=== PATIENT | female | born 1970 | race Caucasian/White ===

== ENCOUNTER 2023-01-23 15:00 | Outpatient (RCR) | payer OTHER, SELFPAY ==
--- NOTE | 2022-12-31 12:31 | MHC.PT.EP ---
[facility] [place] Office [place] Office [place] Office [address] Shelley Schmidt [address] [phone] F: [phone] F: [phone] F: [phone] F: [phone] Physical Therapy Plan of Care Date of Evaluation: Date of Surgery: N/A Diagnosis: dorsalgia (RC) Assessment: pt is a 52 y/o female presenting to physical therapy w/ referring diagnosis of dorsalgia. Signs and symptoms consistent w/ piriformis syndrome vs. SI dysfunction. Impairments include pain, decreased range of motion, decreased strength, impaired functional mobility, impaired postural awareness, and altered ambulation mechanics. pt is a good candidate for skilled PT due to age, potential remediation of impairments, typical disease/condition progression and prognosis, comorbidities, and motivation. pt would benefit from skilled PT intervention to provide a tailored strengthening and stretching exercise program, functional training, gait training, postural re-training, neuromuscular re-education, modalities as needed for pain, equipment safety demonstration. Frequency and Duration: The patient will be seen 2x/wk for 4 wks Short Term Goals: pt will be I w/ HEP to promote self-management of condition. pt will demo proper sitting posture w/ lumbar roll to promote self-management of condition. pt will improve B hip abduction strength by 1 MMT grade to promote neutral spine w/ standing and ambulation. Retail Assistant Store Manager Goals: pt will improve B glute strength to 5/5 to promote ease in stair navigation and transfers. pt will report a statistically significant improvement in self-reported outcome measure, Song, to promote return to PLOF. Treatment Plan: Modalities to reduce pain, spasms and effusion. Manual therapy to restore motion and function. Therapeutic exercise to improve strength and flexibility. Neuromuscular re-education for posture and balance. Therapeutic activities to return to functional activities of daily living. Electronically signed by: Shyanne Parra PT, DPT Please sign and return to therapist. Thank you for your referral.
--- NOTE | 2023-01-25 10:49 | MHC.PT.DC ---
[facility] [place] Office [place] Office [place] Office [address] Shelley Schmidt [address] [phone] F: [phone] F: [phone] F: [phone] F: [phone] Physical Therapy Discharge Report Diagnosis: dorsalgia (RC) Date of Surgery: N/A Date of Evaluation: 12/31/22 Date of Discharge: 01/25/23 Treatments to Date: 6 Cancellations to Date: 1 No Shows to Date: 0 Discharge Status: Improved Function Independent with HEP Discharge Summary: The patient reported overall less frequent and less severe back pain. She is independent with her home exercise program. She would like to be discharged from physical therapy at this time. Electronically signed by: Shyanne Parra PT, DPT Please sign and return to therapist. Thank you for your referral.
== END 2023-01-25 10:49 | disposition home or self-care (01) ==
LOC: HO.PT 15:00
PROVIDERS: PCP Nurse Practitioner Family; Visit Provider Nurse Practitioner Family
DX: M54.9 Dorsalgia, unspecified (principal)
CPT/HCPCS: 97110; 97162; 97530

== ENCOUNTER 2023-02-06 08:46 | Outpatient (REF) | payer OTHER, SELFPAY ==
--- NOTE | ~2023-02-06 | XR_ITS ---
EXAMINATION: XR CHEST CLINICAL INFORMATION: R05.9 - Cough, unspecified COMPARISON: None available. TECHNIQUE: 2 views of the chest were obtained. FINDINGS: The lungs are clear. There is no airspace consolidation or groundglass opacity. Heart size normal. Vascularity normal. Costophrenic sulci are clear. The hilar and mediastinal contours are unremarkable. No acute bony abnormality. XR/XR chest 2V IMPRESSION: Unremarkable examination.
[2023-02-06 09:12] LABS: MANUAL DIFF FLAG NO
[2023-02-06 09:35] LABS: Basophils Absolute Auto 0.1 X10*3/uL (0.0-0.2); Basophils Percent Auto 1.3 % (0-2); Eosinophils Absolute Auto 0.1 X10*3/uL (0.0-0.4); Eosinophils Percent Auto 2.1 % (0-4); Hematocrit 40.8 % (37.0-47.0); Hemoglobin 14.2 g/dl (12.0-16.0); Imm Gran Abs Auto 0.03 X10*3/uL (0.00-0.03); Imm Gran Pct Auto 0.8 % (0.0-0.4); Lymphocytes Absolute Auto 1.1 X10*3/uL (1.2-4.9); Lymphocytes Percent Auto 29.4 % (20-40); Mean Corpuscular HGB Conc 34.8 g/dl (31.0-35.0); Mean Corpuscular Volume 83.3 fL (80.0-98.0); Mean Platelet Volume 9.9 fL (9.4-12.3); Monocytes Absolute Auto 0.4 X10*3/uL (0.1-1.2); Monocytes Percent Auto 10.1 % (2-11); Neutrophils Absolute Auto 2.2 x10*3/uL (2.0-8.3); Neutrophils Percent Auto 56.3 % (45-73); Platelet Count 188 X10*3/uL (160-400); Red Cell Distribution Width 13.6 % (11.0-16.0); White Blood Count 3.9 X10*3/uL (4.8-10.8)
[2023-02-06 10:15] LABS: Estimated Average Glucose 346 mg/dL; Hemoglobin A1c % 13.7 %
[2023-02-06 10:44] LABS: Alanine Aminotransferase 31 U/L (0-31); Albumin Level 4.1 g/dL (3.5-5.0); Alkaline Phosphatase 104 U/L (39-117); Anion Gap 12 (12-20); Aspartate Amino Transferase 24 U/L (5-31); Bilirubin Total 1.1 mg/dL (0.0-1.0); Blood Urea Nitrogen 11 mg/dL (9-16); Calcium 9.4 mg/dL (8.4-10.2); Carbon Dioxide 28 mmol/L (22-29); Chloride 102 mmol/L (96-108); Cholesterol 186 mg/dL; Estimated Glomerular Filt Rate > 60; Glucose Fasting 390 mg/dL (60-99); HDL Cholesterol 34 mg/dL; Potassium 4.3 mmol/L (3.3-5.1); Sodium 138 mmol/L (135-145); Total Protein 6.5 g/dL (6.5-8.0); Triglycerides 490 mg/dL
[2023-02-06 10:47] LABS: Folate 17.5 ng/mL (> or = 4.0); TSH reflex Free T4 1.87 uIU/mL (0.32-4.0); Vitamin B12 1056 pg/mL (200-900); Vitamin D 25-OH Total 74.3 ng/mL (>30)
[2023-02-06 11:03] LABS: Microalbum/Creatinine Ratio Ur 18.3 ug/mg cr
== END 2023-02-06 08:47 | disposition home or self-care (01) ==
LOC: HO.XRAY 08:46
PROVIDERS: PCP Nurse Practitioner Family; Visit Provider Nurse Practitioner Family
DX: I10 Essential (primary) hypertension (principal); E11.9 Type 2 diabetes mellitus without complications; R05.9 Cough, unspecified; E78.1 Pure hyperglyceridemia; K21.9 Gastro-esophageal reflux disease without esophagitis; F32.A Depression, unspecified; F41.9 Anxiety disorder, unspecified; M54.9 Dorsalgia, unspecified
CPT/HCPCS: 36415; 71046; 80053; 80061; 82043; 82306; 82607; 82746; 83036; 84443; 85025

== ENCOUNTER 2023-05-03 12:53 | Outpatient (AMB) | payer OTHER, SELFPAY ==
[2023-05-03 13:01] VITALS: BP 137/86; PULSE 85
--- NOTE | 2023-05-03 13:01 | A.OFFVIS_ITS ---
Intake Vital Signs 05/03/23 13:01 Height 5 ft 5 in Weight 17 lb 10.192 oz BMI 2.9 BP 137/86 Pulse 85 Intake Visit Reasons: DM2 Intake Note: New patient present today for Diabetes Mellitus. Last Diabetic Eye exam: Last Podiatry Visit: Random Glucose: 303mg/dl HgA1C: 13.7% 02/06/23 Shaker Washer Required: No Accompanied by: Self / Same As Patient Allergies No Known Allergies Allergy (Verified 05/03/23 13:07) Medication List - Last Reconciled 05/03/23 by Dylan Evans MD atorvastatin 40 mg PO BEDTIME cyclobenzaprine 5 mg PO BEDTIME PRN glipizide ER 5 mg PO DAILY losartan 100 mg PO DAILY metoprolol succinate ER 50 mg PO DAILY omeprazole 40 mg PO DAILY semaglutide (Ozempic) 1 mg (0.75 mL) subcut QWEEK sertraline 100 mg PO DAILY HPI HPI Comments History of Present Illness Details 53 YO F who is seen in consultation for T2DM at the request of PCP. Initially diagnosed with T2DM in age 29 . Saw taping supervisor saw yrs ago Was initially started on treatment with metformin .Had GI symptoms. Took Jard iance but too expensive . Current regimen Glipizide 5 mg QD Ozempic 1 mg Qwkly . Unfortunately, patient not bring log book or glucometer to visit. Reports low sugars No . Family history of T2DM in- No . Has eyes checked yearly, last eye exam last march 2022 needs to make appt , denies retinopathy. Denies neuropathy, not sees podiatry. Denies nephropathy, on SHANA/ARB.. Has HLD, on statin. Not hx of CAD Had diabetes education. [facility] Medical History (Updated 02/14/23 @ 16:53 by SHAYLA Lagos) COVID-19 Encounter to establish care [place] Surgical History History of cholecystectomy History of colonoscopy Hx of hernia repair Hx of knee surgery Status post breast reduction Family History Mother Alcoholic Father Heart transplanted Cardiomyopathy Social History Housing: Apartment Patient Tobacco Use Status: Never used Tobacco Second Hand Smoke Exposure: Yes (parents) service: No Current occupational status: employed Cognitive needs: No Hearing needs: No Vision needs: No Physical Exam Vital Signs: Last Vital Signs Pulse 85 05/03/23 13:01 BP 137/86 05/03/23 13:01 BMI result Body Mass Index 2.9 Absence of Cushingoid features. Absence of acromegalic features. Neck exam reveals nl size thyroid about 15 gms. No thyroid nodules palpable. No carotid bruits present. Lungs CTA. Heart S1 S2, Reg R/R. No M/R/ G. Skin exam reveals absence of vitiligo or acanthosis nigricans. Abdominal exam reveals Soft NT/ND with NA BS. No organomegaly present. Neck Other: . Extrem Other: Visual exam of foot performed. No ulcerations or open lesions. No onchomycosis, no callouses.Pulses 2 + distally Sensation intact to monofilament exam. Vibratory sensation sensed is intact with 128 Hz tuning fork Assessment & Plan Assessment & Plan (1) Diabetes mellitus: Code(s): E11.9 - Type 2 diabetes mellitus without complications Plan: This is a 53-year-old white female with a history of type 2 diabetes being treated with glipizide and Ozempic with poor glycemic control and no known m icrovascular or macrovascular complications. Plan is that the patient check her point cares pre and post meals and bring glucometer with to follow-up visits. I prescribed a Chris 3. I will also send to children's lunchroom supervisor and contact officer. Most likely considering degree of hyperglycemia, patient will need addition of insulin initially. Will start Tresiba 20 units once patient returns to see children's lunchroom supervisor with Chris. Will discuss with patient the correlation of poor glycemic control the development and progression of complications. Will repeat lipid profile once patient has better glycemic control. Will also check anti-ROC 65 antibodies to rule out CHELSEA considering no family history of diabetes Orders: Orders Glutamic acid decarboxylase Ab Today E11.9 - Type 2 diabetes mellitus without complications Medications: New blood-glucose sensor (FreeStyle Chris 3 Sensor device) As directed change every 14 days 2 ea 4RF insulin degludec (Tresiba FlexTouch U-100 insulin) 20 units (0.2 mL) subcut BEDTIME 15 mL 4RF pen needle, diabetic (Comfort EZ Pen [place]) As directed injects once day 50 ea 5RF Coding Level of Care Code New Pt Level 5 (36768) Diagnoses Diabetes mellitus E11.9 Time Spent (min) 60 Comment A total of 60 minutes was spent reviewing chart, seeing patient and dictating
[2023-05-03 13:13] LABS: Glucose, Whole Blood 303 mg/dL (60-115)
[2023-05-07 20:29] LABS: Glutamic acid decarboxylase Ab <5 IU/mL (<5)
== END 2023-05-03 14:02 | disposition home or self-care (01) ==
PROVIDERS: PCP Nurse Practitioner Family; Visit Provider Internal Medicine Endocrinology, Diabetes & Metabolism
DX: E11.9 Type 2 diabetes mellitus without complications (principal)
CPT/HCPCS: 99205

== ENCOUNTER → 2023-05-03 12:53 | Outpatient (BNVA) | payer OTHER, SELFPAY | PROVIDERS: Visit Provider Internal Medicine Endocrinology, Diabetes & Metabolism | DX: E11.9 Type 2 diabetes mellitus without complications (principal); Z79.4 Long term (current) use of insulin; E78.5 Hyperlipidemia, unspecified; Z79.899 Other long term (current) drug therapy | CPT/HCPCS: 36415; 82947; 86341 ==

== ENCOUNTER 2023-05-14 14:29 | Outpatient (AMB) | payer OTHER, SELFPAY ==
--- NOTE | 2023-05-14 14:56 | A.OFFVIS_ITS ---
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: No Accompanied by: Spouse Allergies No Known Allergies Allergy (Verified 05/03/23 13:07) HPI Comprehensive Diabetes Asmnt Most Recent Diabetes Results: Microalb/Creat Ratio 18.3 ug/mg cr 02/06/23 Cholesterol 186 mg/dL 02/06/23 HDL Cholesterol 34 mg/dL 02/06/23 Triglycerides 490 mg/dL 02/06/23 Creatinine 0.73 mg/dL (0.5-1.4) 02/06/23 Blood Urea Nitrogen 11 mg/dL (9-16) 02/06/23 Sodium 138 mmol/L (135-145) 02/06/23 Potassium 4.3 mmol/L (3.3-5.1) 02/06/23 Chloride 102 mmol/L (96-108) 02/06/23 Carbon Dioxide 28 mmol/L (22-29) 02/06/23 Calcium 9.4 mg/dL (8.4-10.2) 02/06/23 AST 24 U/L (5-31) 02/06/23 ALT 31 U/L (0-31) 02/06/23 Total Protein 6.5 g/dL (6.5-8.0) 02/06/23 Albumin 4.1 g/dL (3.5-5.0) 02/06/23 [facility] Medical History (Updated 02/14/23 @ 16:53 by SHAYLA Lagos) COVID-19 Encounter to establish care [place] Surgical History History of cholecystectomy History of colonoscopy Hx of hernia repair Hx of knee surgery Status post breast reduction Family History Mother Alcoholic Father Heart transplanted Cardiomyopathy Social History Housing: Apartment Patient Tobacco Use Status: Never used Tobacco Second Hand Smoke Exposure: Yes (parents) service: No Current occupational status: employed Cognitive needs: No Hearing needs: No Vision needs: No Assessment & Plan Assessment & Plan (1) Diabetes mellitus: Code(s): E11.9 - Type 2 diabetes mellitus without complications Plan: Insulin Education visit Patient Education: Patient was instructed and provided with demonstration of the following: Insulin action insulin storage how to set up insulin pen/or syringe and vial Handwashing insulin injection site rotation Site rotation recognizing hypertrophy Testing blood glucose Removing and disposing needle from insulin pen Safe disposal of sharps Target blood sugar Signs/ symptoms/treatment of hypoglycemia/hyperglycemia expiration of open insulin pen Patient verbalized understanding of education provided and was able to demonstrate proper use of inject into injection pillow Reviewed rule of 15s to treat glucose under 70 mg/dL All questions were answered and patient was advised to contact the office with any questions or concerns. Plan Pt will start Tresiba 20 units daily Patient Instructions: How to Use Your Insulin Pen Supplies you will need: alcohol, alcohol wipes, insulin pen, pen needle * Wash your hands * Remove cap from the top of the pen * Clean the top of the pen with alcohol swab * Remove paper tab from pen needle base * Screw pen needle firmly on to pen * Remove outer cover of pen needle put it aside, discard little cover from pen needle * Dial base of needle to 2 units, press and make sure you see a drip at top of needle * Check to see the dial return to zero * Dial your correct insulin dose at base of pen * Clean injection site with alcohol or hot soapy water, remember always to rotate injection sites with every injection * Inject needle at 90? angle into chosen injection site * Press the button on the bottom of the pen * After you press the button count to 10 and then remove needle from your skin * Put the large needle cap back over needle and unscrew counterclockwise to remove pen needle * Replace insulin pen cover * Write the date on the pen when you opened or expiration date. Once insulin pens are open they can be left at room temperature. Please see below: * Tresiba eight weeks Store unopened pens in the refrigerator until expiration date on the box. Hypoglycemia or blood glucose under 70 use the rule of 15's: If you have your blood glucose meter test your blood glucose, if you do not have your meter still follow below instruction: Keep quick-sugar foods with you at all times.? Take 15 grams of fast acting carbohydrates. Examples are 4 ounces of fruit juice or regular soda pop, 8 ounces fat-free milk, 1 tablespoon of table sugar, honey or corn syrup, jam, one miniature box of raisins, 7-8 gumdrops or Life Savers candy, 4 glucose tablets, and glucose gel.? Retest blood glucose in 15 minutes, if blood glucose is still under 80, repeat rule of 15's. If blood glucose is under 50, take 30 grams of fast acting carbohydrates If you are having hypoglycemia, or insulin reaction, more then a few times a week, call MD or community health educator DIABETES PROBLEMS HOMECARE INSTRUCTIONS Hypo instructions ? When first signs of insulin reaction occur, immediately drink orange juice or cola, or suck on a sugar cube, but only if the person is conscious. ? Person with diabetes should continue taking insulin when ill, unless he/she is not able to eat.? Regularly check blood sugar or urine for sugar and acetone during illness. ? Exercise regularly. ? Pay special attention to the feet.? Avoid cuts, sores, blisters, ill- fitting shoes, or going barefoot.? Promptly treat injuries to the feet. ? Take medications as directed by physician. ? Drink extra water or noncaffeinated, nonsugared drinks to prevented hydration. Signs and symptoms of low blood sugar (happen quickly) Each person's reaction to low blood sugar is different. Learn your own signs and symptoms of when your blood sugar is low. Taking time to write these symptoms down may help you learn your own symptoms of when your blood sugar is low. From milder, more common indicators to most severe, signs and symptoms of low blood sugar include: Feeling shaky Being nervous or anxious Sweating, chills and clamminess Irritability or impatience Confusion Fast heartbeat Feeling lightheaded or dizzy Hunger Nausea Color draining from the skin (pallor) Feeling Sleepy Feeling weak or having no energy Blurred/impaired vision Tingling or numbness in the lips, tongue, or cheeks Headaches Coordination problems, clumsiness Hypoglycemia or blood glucose under 70 use the rule of 15's: If you have your blood glucose meter test your blood glucose, if you do not have your meter still follow below instruction: Keep quick-sugar foods with you at all times.? Take 15 grams of fast acting carbohydrates. Examples are 4 ounces of fruit juice or regular soda pop, 8 ounces fat-free milk, 1 tablespoon of table sugar, honey or corn syrup, jam, one miniature box of raisins, 7-8 gumdrops or Life Savers candy, 4 glucose tablets, and glucose gel.? Retest blood glucose in 15 minutes, if blood glucose is still under 70, repeat rule of 15's. If blood glucose is under 50, take 30 grams of fast acting carbohydrates If you are having hypoglycemia, or insulin reaction, more that a few times a week, call MD or community health educator F/U BG check Coding Level of Care Code Est Pt Level 1 (52141) Diagnoses Diabetes mellitus E11.9
== END 2023-05-14 15:05 | disposition home or self-care (01) ==
PROVIDERS: PCP Nurse Practitioner Family; Visit Provider Registered Nurse Diabetes Educator
DX: E11.9 Type 2 diabetes mellitus without complications (principal)
CPT/HCPCS: 99211

== ENCOUNTER → 2023-05-14 14:29 | Outpatient (BNVA) | payer OTHER, SELFPAY | PROVIDERS: PCP Nurse Practitioner Family; Visit Provider Registered Nurse Diabetes Educator ==

== ENCOUNTER 2023-06-19 15:38 | Outpatient (AMB) | payer OTHER, SELFPAY ==
[2023-06-19 15:41] VITALS: BP 160/90; PULSE 94; O2SAT 97; BMI 32.6
--- NOTE | 2023-06-19 15:41 | A.OFFPC_ITS ---
Vital Signs 06/19/23 15:41 06/19/23 15:58 Height 5 ft 5 in Weight 196 lb BMI 32.6 BP 160/90 H 156/84 H Blood Pressure Location Lt brachial Lt brachial Position Sitting Sitting Pulse 94 Pulse Source Pulse Oximeter Temp Source Skin Pulse Oximetry (%) 97 Oxygen Delivery Method Room Air Intake Visit Reasons: 4 month f/u Intake Note: Patient is here to follow up on 4 months Allergies No Known Allergies Allergy (Verified 06/19/23 15:50) Medication List - Last Reconciled 06/19/23 by SHAYLA Lagos atorvastatin 40 mg PO BEDTIME blood-glucose sensor (FreeStyle Chris 3 Sensor device) As directed change every 14 days cyclobenzaprine 5 mg PO BEDTIME PRN glipizide ER 5 mg PO DAILY insulin degludec (Tresiba FlexTouch U-100 insulin) 20 units (0.2 mL) subcut BEDTIME losartan 100 mg PO DAILY metoprolol succinate ER 50 mg PO DAILY omeprazole 40 mg PO DAILY pen needle, diabetic (Easy Comfort Pen [place]) As directed inbjects once a day semaglutide (Ozempic) 1 mg (0.75 mL) subcut QWEEK sertraline 100 mg PO DAILY Tobacco use date assessed: 06/19/23 Dental Screening Dental Screen Date: 06/19/23 Did you have a dental visit in the last 12 months?: No Did you have a dental problem in the last 6 months where you did not have access to dental care?: No HPI 4 month f/u HPI Details Patient is a 53-year-old female who presents today for a routine follow-up. Medical history significant for hypertension, diabetes-followed by Endocrinology, hypertriglyceridemia, GERD, depression, anxiety, obesity. Patient reports that she is compliant with medications and denies side effects. Patient reports that she was rushing to today's appointment and her blood pressure is elevated, she denies headache, vision changes, chest pain or shortness of breath. Reports blood sugars at home ranging between 200 and 300s. Patient was encouraged to complete her blood work that was ordered at the last office visit. [facility] Medical History COVID-19 [place] Encounter to establish care Surgical History History of colonoscopy Hx of hernia repair History of cholecystectomy Status post breast reduction Hx of knee surgery Family History Mother Alcoholic Father Heart transplanted Cardiomyopathy Social History Housing: Apartment Patient Tobacco Use Status: Never used Tobacco Second Hand Smoke Exposure: Yes (parents) service: No Current occupational status: employed Cognitive needs: No Hearing needs: No Vision needs: No Questionnaire AUDIT C Alcohol Use Questionnaire (AUDIT-C) 1. How often do you have a drink containing alcohol?: Monthly or less 2. How many drinks containing alcohol do you have on a typical day when you are drinking?: 1 or 2 3. How often do you have six or more drinks on one occasion?: Never Total Score: 1 Score Reviewed/Action Taken: No ROC-7 AMB Questionnaire ROC-7 Date ROC - 7 assessed: 02/14/23 Source: Developed by Drs. Dylan Winters, America Taveras, Augusto Guillory and colleagues, with an educational trinidad from [employer]. Review of Systems Const Denies body aches, Denies chills, Denies fever(s) and Denies headache(s) Eyes Denies change in vision ENT Denies dizziness, Denies otalgia, Denies headache(s), Denies nasal discharge, Denies sinus pain and Denies sore throat Card Denies chest pain, Denies edema, Denies lightheadedness and Denies dyspnea Resp Denies dyspnea GI Denies constipation, Denies diarrhea, Denies nausea and Denies vomiting Denies dysuria Musc Denies myalgias Skin/Breast Denies lesions and Denies rash Neuro Denies dizziness and Denies headache(s) Physical exam (Primary Care) Vital Signs: Last Vital Signs Pulse 94 06/19/23 15:41 BP 156/84 H 06/19/23 15:58 Pulse Ox 97 06/19/23 15:41 Oxygen Delivery Method Room Air 06/19/23 15:41 BMI result Body Mass Index 32.6 Tobacco/Smoking Status: Tobacco use Status Tobacco use date assessed 06/19/23 06/19/23 15:42 Patient Tobacco Use Status Never used Tobacco 06/19/23 15:42 Const General: cooperative and no acute distress Orientation/consciousness: patient oriented x3 HENMT Head: Yes normocephalic and Yes atraumatic Mouth: oropharynx normal and moist mucous membranes Throat: Yes posterior oropharynx normal Eyes General: appearance normal, both eyes and all related structures Pupils: Equal, round and reactive pupils present EOM: EOMs intact bilaterally Neck Neck: Yes normal visual inspection, Yes full ROM and Yes no lymphadenopathy Resp Effort & Inspection: normal respiratory effort and able to speak in complete sentences Auscultation: clear to auscultation bilaterally, no crackles, no rales, no rhonchi and no wheezes Cardio Rate: regular rate Rhythm: regular rhythm Heart sounds: S1 normal heart sound present, S2 normal heart sound present and no murmurs GI Auscultation: normal bowel sounds Skin General skin exam: no rashes or lesions noted Neuro General: patient oriented x3 Cranial nerves: Yes Equal, round and reactive pupils present Gait exam (Neuro): Normal gait present Extrem General: Yes full ROM and No edema Results AMB Hemoglobin A1c AMB Hemoglobin A1c 8.0 % Last Edit by DESTINEY Mixon on 06/19/23 15:53 Results Reviewed Results Reviewed: Laboratory Last Values Hgb A1c (Clinic) 8.0 % (4.0-6.0) H 06/19/23 14:52 Assessment and Plan Assessment & Plan (1) Anxiety: Code(s): F41.9 - Anxiety disorder, unspecified Plan: Stable with sertraline 100 mg daily (2) Depression: Code(s): F32.A - Depression, unspecified Qualifiers: Depression Type: other depression Qualified Code(s): F32.89 - Other specified depressive episodes Plan: Stable with sertraline 100 mg daily (3) GERD (gastroesophageal reflux disease): Code(s): K21.9 - Gastro-esophageal reflux disease without esophagitis Plan: Omeprazole 40 mg daily Avoid GERD trigger foods Do not lay down 2-3 hours after evening meal (4) Hypertriglyceridemia: Code(s): E78.1 - Pure hyperglyceridemia Plan: Triglycerides 490 01/2023 Continue atorvastatin 40 mg at bedtime Low-cholesterol diet Patient was encouraged to complete her blood work (5) Diabetes mellitus: Code(s): E11.9 - Type 2 diabetes mellitus without complications Plan: A1c 8.0 today, previous A1c 13.7 01/2023, goal less than 7 Continue Ozempic weekly, glipizide, and tresiba Low carbohydrate diet Continue to follow-up with [facility] (6) Hypertension: Code(s): I10 - Essential (primary) hypertension Plan: Goal BP equal or less than 140/90 Continue metoprolol 50 mg daily and losartan 100 mg daily Low-sodium diet Patient was encouraged to monitor her blood pressures at home and notify office if elevated blood pressures readings will adjust blood pressure medications (7) Obesity (BMI 30.0-34.9): Code(s): E66.9 - Obesity, unspecified Plan: Healthy food choices and exercise as tolerated Plan Follow-up in 4 months or sooner as needed Orders: Orders AMB Hemoglobin A1c Today E11.9 - Type 2 diabetes mellitus without complications Coding Level of Care Code Est Pt Level 4 (81096) Diagnoses Anxiety F41.9 Other depression F32.89 Depression Type: other depression GERD (gastroesophageal reflux disease) K21.9 Hypertriglyceridemia E78.1 Diabetes mellitus E11.9 Hypertension I10 Obesity (BMI 30.0-34.9) E66.9
[2023-06-19 15:58] VITALS: BP 156/84
== END 2023-06-19 16:00 | disposition home or self-care (01) ==
PROVIDERS: Visit Provider Nurse Practitioner Family
DX: E11.9 Type 2 diabetes mellitus without complications (principal); F41.9 Anxiety disorder, unspecified; K21.9 Gastro-esophageal reflux disease without esophagitis; I10 Essential (primary) hypertension; F32.89 Other specified depressive episodes; E78.1 Pure hyperglyceridemia; E66.9 Obesity, unspecified
CPT/HCPCS: 83036; 99214

== ENCOUNTER 2023-08-23 11:19 | Outpatient (REF) | payer OTHER, SELFPAY ==
[2023-08-23 11:31] LABS: MANUAL DIFF FLAG NO
[2023-08-23 11:37] LABS: Basophils Absolute Auto 0.1 X10*3/uL (0.0-0.2); Eosinophils Absolute Auto 0.1 X10*3/uL (0.0-0.4); Eosinophils Percent Auto 1.2 % (0-4); Hematocrit 38.8 % (37.0-47.0); Hemoglobin 13.6 g/dl (12.0-16.0); Imm Gran Abs Auto 0.05 X10*3/uL (0.00-0.03); Imm Gran Pct Auto 0.8 % (0.0-0.4); Lymphocytes Absolute Auto 1.9 X10*3/uL (1.2-4.9); Mean Corpuscular HGB Conc 35.1 g/dl (31.0-35.0); Mean Corpuscular Hemoglobin 29.6 pg (27.0-33.0); Mean Corpuscular Volume 84.3 fL (80.0-98.0); Mean Platelet Volume 9.3 fL (9.4-12.3); Monocytes Absolute Auto 0.5 X10*3/uL (0.1-1.2); Monocytes Percent Auto 7.6 % (2-11); Neutrophils Absolute Auto 3.4 x10*3/uL (2.0-8.3); Neutrophils Percent Auto 57.4 % (45-73); Platelet Count 255 X10*3/uL (160-400); Red Cell Distribution Width 13.3 % (11.0-16.0); White Blood Count 5.9 X10*3/uL (4.8-10.8)
[2023-08-23 12:07] LABS: Alanine Aminotransferase 55 U/L (0-31); Albumin Level 4.2 g/dL (3.5-5.0); Alkaline Phosphatase 123 U/L (39-117); Anion Gap 10 (12-20); Aspartate Amino Transferase 27 U/L (5-31); Bilirubin Total 0.8 mg/dL (0.0-1.0); Blood Urea Nitrogen 9 mg/dL (9-16); Calcium 9.8 mg/dL (8.4-10.2); Carbon Dioxide 30 mmol/L (22-29); Chloride 105 mmol/L (96-108); Cholesterol 129 mg/dL (<200); Estimated Glomerular Filt Rate > 60; Glucose Fasting 263 mg/dL (60-99); HDL Cholesterol 37 mg/dL (>40); LDL Cholesterol Calculated 39 mg/dL (<100); Potassium 4.4 mmol/L (3.3-5.1); Sodium 141 mmol/L (135-145); Total Protein 7.2 g/dL (6.5-8.0); Triglycerides 267 mg/dL (<150)
[2023-08-23 13:39] LABS: Estimated Average Glucose 197 mg/dL; Hemoglobin A1c % 8.5 % (<6.0)
== END 2023-08-23 11:20 | disposition home or self-care (01) ==
LOC: HO.LAB 11:19
PROVIDERS: PCP Nurse Practitioner Family; Visit Provider Nurse Practitioner Family
DX: E78.1 Pure hyperglyceridemia (principal); E11.9 Type 2 diabetes mellitus without complications
CPT/HCPCS: 36415; 80053; 80061; 83036; 85025

== ENCOUNTER 2023-10-07 11:04 | Outpatient (AMB) | payer OTHER, SELFPAY ==
--- NOTE | 2023-10-07 11:25 | A.OFFPC_ITS ---
Vital Signs 10/07/23 11:28 Height 5 ft 5 in Weight 201 lb 2 oz BMI 33.5 BP 118/62 Blood Pressure Location Lt brachial Position Sitting Pulse 81 Pulse Source Pulse Oximeter Pulse Oximetry (%) 97 Oxygen Delivery Method Room Air Intake Visit Reasons: High BS/med review Intake Note: Patient is here to follow up on High blood sugars and medication review/change. Oil Well Service Operator Required: No Patient Financial Representative: Not Required per policy Accompanied by: Self / Same As Patient Allergies No Known Allergies Allergy (Verified 10/07/23 11:27) Medication List - Last Reconciled 10/07/23 by Artemio Underwood MD atorvastatin 40 mg PO BEDTIME blood-glucose sensor (FreeStyle Chris 3 Sensor device) As directed change every 14 days cyclobenzaprine 5 mg PO BEDTIME PRN glipizide ER 5 mg PO DAILY insulin degludec (Tresiba FlexTouch U-100 insulin) 20 units (0.2 mL) subcut BEDTIME losartan 100 mg PO DAILY metoprolol succinate ER 50 mg PO DAILY omeprazole 40 mg PO DAILY pen needle, diabetic (Easy Comfort Pen Epps) As directed inbjects once a day semaglutide (Ozempic) 1 mg (0.75 mL) subcut QWEEK sertraline 100 mg PO DAILY Tobacco use date assessed: 10/07/23 Dental Screening Dental Screen Date: 10/07/23 Did you have a dental visit in the last 12 months?: No Did you have a dental problem in the last 6 months where you did not have access to dental care?: No Was dental information given to patient?: No HPI High BS/med review HPI Details 53-year-old female presents to the offic e to review her medical conditions. Patient has type 2 diabetes and takes glipizide, Tresiba and Ozempic. Her blood sugars have been greater than 250 and her last A1c is 8.5. Initially patient was taking Jardiance and her sugars were well controlled. However she had to stop the Jardiance due to the cost. She was switched to glipizide and patient's blood sugars have been high. Now she has found a way to pay for the Jardiance and would like to switch back to it. [facility] Medical History COVID-19 Lipoma Encounter to establish care Surgical History History of colonoscopy Hx of hernia repair History of cholecystectomy Status post breast reduction Hx of knee surgery Family History Mother Alcoholic Father Heart transplanted Cardiomyopathy Social History (Updated 10/07/23 @ 12:05 by DESTINEY Cooper) Housing: Apartment Alcohol intake: never Patient Tobacco Use Status: Never used Tobacco e-Cigarette/Vaping Use: Never Used Second Hand Smoke Exposure: Yes (parents) service: No Current occupational status: employed Cognitive needs: No Hearing needs: No Vision needs: No Questionnaire PHQ-9 Over the last 2 weeks, how often have you been bothered by any of the following problems? 1. Little interest or pleasure in doing things: several days (on medication) 2. Feeling down, depressed, or hopeless: not at all 3. Trouble falling or staying asleep, or sleeping too much: not at all 4. Feeling tired or having little energy: not at all 5. Poor appetite or overeating: not at all 6. Feeling bad about yourself - or that you are a failure or have let yourself or your family down: not at all 7. Trouble concentrating on things, such as reading the newspaper or watching television: not at all 8. Moving or speaking so slowly that other people could have noticed. Or the opposite - being so fidgety or restless that you have been moving around a lot more than usual: not at all 9. Thoughts that you would be better off or of hurting yourself in some way: not at all Total score: 1 Depression Screening Interpretation: Negative Depression Screening Done: Yes Source: Developed by Drs. Dylan Wniters, America Taveras, Augusto Guillory and colleagues, with an educational trinidad from [employer]. Thrive Questionnaire Date Thrive assessed: 10/07/23 I am a: Patient What is your living situation today?: I have a steady place to live Within the past 12 months, did the food you bought not last and you didn't have the money to get more?: Never true Within the past 12 months, did you worry whether your food would run out before you got money to buy more?: Never true Do you have trouble paying for medicines?: No Do you have trouble getting transportation to medical appointments?: No Do you have trouble paying your heating and electricity bill?: No Do you have trouble taking care of your child, family member or friend?: No Do you have trouble with day-to-day activities such as bathing, preparing meals, shopping, managing finances, etc.?: No Are you currently unemployed and looking for a job?: No Are you interested in more education?: No Currently or been in a relationship where the following occur: no concerns reported AUDIT C Alcohol Use Questionnaire (AUDIT-C) 1. How often do you have a drink containing alcohol?: Monthly or less 2. How many drinks containing alcohol do you have on a typical day when you are drinking?: 1 or 2 Total Score: 1 ROC-7 AMB Questionnaire ROC-7 Date ROC - 7 assessed: 10/07/23 Feeling nervous, anxious, or on edge: 1 = Several days (on medication) Not being able to stop or control worryin = Not at all Worrying too much about different things: 0 = Not at all Trouble relaxin = Not at all Being so restless that it is hard to sit still: 0 = Not at all Becoming easily annoyed or irritable: 0 = Not at all Feeling afraid as if something awful might happen: 0 = Not at all Total ROC-7 score (0-4 normal; 5-9 mild; 10-14 moderate; 15-21 severe): 1 Source: Developed by Drs. Dylna Winters, America Taveras, Augusto Guillory and colleagues, with an educational trinidad from [employer]. Physical exam (Primary Care) Vital Signs: Last Vital Signs Pulse 81 10/07/23 11:28 BP 118/62 10/07/23 11:28 Pulse Ox 97 10/07/23 11:28 Oxygen Delivery Method Room Air 10/07/23 11:28 BMI result Body Mass Index 33.5 Tobacco/Smoking Status: Tobacco use Status Tobacco use date assessed 10/07/23 10/07/23 12:00 Patient Tobacco Use Status Never used Tobacco 10/07/23 12:05 e-Cigarette/Vaping Use Never Used 10/07/23 12:05 PHQ-9: PHQ-9 Score PHQ-9: Total score 1 10/07/23 12:06 Depression Screening Interpretation: Negative Thrive Assessment: Date of Thrive Assessment Date Thrive assessed 10/07/23 10/07/23 12:00 Currently or been in a relationship where the following occur: no concerns reported Const General: cooperative and healthy appearing Nutritional Appearance: well nourished Orientation/consciousness: patient oriented x3 Limitations: no limitations HENMT Head: Yes normal to inspection Eyes General: appearance normal, both eyes and all related structures Neck Neck: Yes normal visual inspection Chest Chest palpation & inspection: normal palpation of entire chest wall Resp Effort & Inspection: normal respiratory effort Neuro General: patient oriented x3 Assessment and Plan Assessment & Plan (1) Diabetes mellitus: Code(s): E11.9 - Type 2 diabetes mellitus without complications Plan: Glipizide has been stopped. Jardiance 25 mg a day has been restarted. Patient was advised to still be compliant with diet and exercise. Other medications should be continued at the same dosage. Coding Level of Care Code Est Pt Level 4 (49623) Diagnoses Diabetes mellitus E11.9
[2023-10-07 11:28] VITALS: BP 118/62; PULSE 81; O2SAT 97; BMI 33.5
== END 2023-10-07 12:21 | disposition home or self-care (01) ==
PROVIDERS: PCP Nurse Practitioner Family; Visit Provider Internal Medicine
DX: E11.9 Type 2 diabetes mellitus without complications (principal)
CPT/HCPCS: 99214

== ENCOUNTER → 2023-11-20 10:46 | Outpatient (BNVA) | payer OTHER, SELFPAY | PROVIDERS: PCP Nurse Practitioner Family; Visit Provider Internal Medicine Endocrinology, Diabetes & Metabolism | DX: E11.9 Type 2 diabetes mellitus without complications (principal) | CPT/HCPCS: 82947; 83036 ==

== ENCOUNTER 2024-01-23 14:45 | Outpatient (AMB) | payer OTHER, SELFPAY ==
--- NOTE | 2024-01-23 15:05 | MHC.PC.OV ---
Vital Signs 01/23/24 15:08 Height 5 ft 5 in Weight 196 lb 6 oz BMI 32.7 BP 120/72 Blood Pressure Location Lt brachial Position Sitting Pulse 80 Pulse Source Pulse Oximeter Pulse Oximetry (%) 96 Oxygen Delivery Method Room Air Intake Visit Reasons: medication follow up Intake Note: Patient is here to follow up on HTN, DM. Route Process Administrator Required: No Aerial Sprayer: Not Required per policy Accompanied by: Self / Same As Patient Allergies No Known Allergies Allergy (Verified 01/23/24 16:03) Tobacco use date assessed: 01/23/24 Dental Screening Dental Screen Date: 10/07/23 HPI medication follow up HPI Details 54-year-old female presents to the office to discuss her chronic medical conditions. Patient sees an office rental clerk to manage her blood sugars. Mounjaro has been added to the regimen. Her blood sugars are declining. She does not have a recent A1c level. [facility] Medical History COVID-19 Lipoma Encounter to establish care Surgical History History of colonoscopy Hx of hernia repair History of cholecystectomy Status post breast reduction Hx of knee surgery Family History (Updated 01/23/24 @ 15:05 by DESTINEY Cooper) Mother Alcoholic Father Heart transplanted Cardiomyopathy Other Substance use disorder Social History Housing: Apartment Alcohol intake: never Patient Tobacco Use Status: Never used Tobacco e-Cigarette/Vaping Use: Never Used Second Hand Smoke Exposure: Yes (parents) service: No Current occupational status: employed Cognitive needs: No Hearing needs: No Vision needs: No Questionnaire Thrive Questionnaire Date Thrive assessed: 10/07/23 ROC-7 AMB Questionnaire ROC-7 Date ROC - 7 assessed: 10/07/23 Source: Developed by Drs. Dylan Winters, America Taveras, Augusto Guillory and colleagues, with an educational trinidad from [employer]. Physical exam (Primary Care) Vital Signs: Last Vital Signs Pulse 80 01/23/24 15:08 BP 120/72 01/23/24 15:08 Pulse Ox 96 01/23/24 15:08 Oxygen Delivery Method Room Air 01/23/24 15:08 BMI result Body Mass Index 32.7 Tobacco/Smoking Status: Tobacco use Status Tobacco use date assessed 01/23/24 01/23/24 15:23 Patient Tobacco Use Status Never used Tobacco 01/23/24 15:23 e-Cigarette/Vaping Use Never Used 01/23/24 15:23 Thrive Assessment: Date of Thrive Assessment Date Thrive assessed 10/07/23 01/23/24 15:23 Const General: cooperative and healthy appearing Nutritional Appearance: well nourished Orientation/consciousness: patient oriented x3 Limitations: no limitations HENMT Head: Yes normal to inspection Eyes General: appearance normal, both eyes and all related structures Neck Neck: Yes normal visual inspection Chest Chest palpation & inspection: normal palpation of entire chest wall Resp Effort & Inspection: normal respiratory effort Neuro General: patient oriented x3 Results AMB Hemoglobin A1c AMB Hemoglobin A1c 8.3 % Last Edit by DESTINEY Cooper on 01/23/24 16:10 Assessment and Plan Assessment & Plan (1) Diabetes mellitus: Code(s): E11.9 - Type 2 diabetes mellitus without complications Plan: Will call with the results of the A1c. Mammogram has been ordered. Medications: Refilled losartan 100 mg PO DAILY 90 tabs 1RF blood pressure I10 - Essential (primary) hypertension insulin degludec (Tresiba FlexTouch U-100 insulin) 20 units (0.2 mL) subcut BEDTIME 15 mL 4RF metoprolol succinate ER 50 mg PO DAILY 90 tabs 1RF I10 - Essential (primary) hypertension Coding Level of Care Code Est Pt Level 3 (24685) Diagnoses Diabetes mellitus E11.9
[2024-01-23 15:08] VITALS: BP 120/72; PULSE 80; O2SAT 96; BMI 32.7
== END 2024-01-23 16:05 | disposition home or self-care (01) ==
PROVIDERS: PCP Internal Medicine; Visit Provider Internal Medicine
DX: E11.9 Type 2 diabetes mellitus without complications (principal)
CPT/HCPCS: 83036; 99213

== ENCOUNTER 2024-02-12 15:49 | Outpatient (REF) | payer OTHER, SELFPAY ==
--- NOTE | ~2024-02-12 | MM_ITS ---
EXAMINATION: MM SCREENING DIGITAL BREAST TOMOSYNTHESIS, BILATERAL CLINICAL INFORMATION: Screening. Asymptomatic. COMPARISON: Mammography: There are no prior mammograms for comparison. TECHNIQUE: Digital breast tomosynthesis is performed in both the craniocaudal and mediolateral oblique views along with computer-aided detection (CAD). Synthesized 2D images are generated from the tomosynthesis. FINDINGS: The breasts are almost entirely fatty (ACR BI-RADS breast composition Category a). There are no significant masses, abnormal calcifications, or other abnormalities. MM/MM tomosynthesis screening BI IMPRESSION: No mammographic evidence of malignancy. ASSESSMENT: BI-RADS BI-RADS 1 - Negative RECOMMENDATION: Routine annual mammography screening. 1 year F/U This examination should not preclude the clinical evaluation of a suspicious palpable abnormality. This patient's information was entered into a reminder system with a target due date for their next mammogram.
== END 2024-02-12 15:50 | disposition home or self-care (01) ==
LOC: HO.MAMMO 15:49
PROVIDERS: PCP Internal Medicine; Visit Provider Internal Medicine
DX: Z12.31 Encounter for screening mammogram for malignant neoplasm of breast (principal)
CPT/HCPCS: 77063; 77067

== ENCOUNTER → 2024-02-12 16:00 | Outpatient (BNV) | payer OTHER, SELFPAY | PROVIDERS: PCP Internal Medicine; Visit Provider Radiology Diagnostic Radiology | DX: Z12.31 Encounter for screening mammogram for malignant neoplasm of breast (principal) | CPT/HCPCS: 77063; 77067 ==

== ENCOUNTER 2024-02-18 11:10 | Outpatient (AMB) | payer OTHER, SELFPAY ==
--- NOTE | 2024-02-18 11:15 | A.OFFVIS_ITS ---
Vital Signs 02/18/24 11:16 Height 5 ft 5 in Weight 192 lb 3.889 oz BMI 32.0 BP 120/78 Blood Pressure Location Lt brachial Position Sitting Pulse 81 Pulse Source Pulse Oximeter Intake Visit Reasons: DM Intake Note: Patient present today to follow up on Type 2 Diabetes Mellitus. Last Diabetic Eye exam: 12/2023 Last Podiatry Visit: Doesn't have one. Random Glucose: 146 mg/dl HgA1C: 8.3% 01/23/2024 Earth Science Laboratory Technician Required: No Accompanied by: Self / Same As Patient Allergies No Known Allergies Allergy (Verified 02/18/24 11:20) Medication List - Last Reconciled 02/18/24 by Dylan Evans MD atorvastatin 40 mg PO BEDTIME blood-glucose sensor ([employer] Chris 3 Sensor device) USE DIRECTED CHANGE EVERY 14 DAYS empagliflozin (Jardiance) 25 mg PO DAILY insulin degludec (Tresiba FlexTouch U-100 insulin) 20 units (0.2 mL) subcut BEDTIME losartan 100 mg PO DAILY metoprolol succinate ER 50 mg PO DAILY omeprazole 40 mg PO DAILY pen needle, diabetic (BD Ultra-Fine Mini Pen Needle) USE DIRECTED TO INJECT ONCE A DAY sertraline 100 mg PO DAILY tirzepatide (Mounjaro) 2.5 mg (0.5 mL) subcut QWEEK 3 months HPI Comments Details: 54 YO F who is seen in consultation for T2DM at the request of PCP. Initially diagnosed with T2DM in age 29 . Saw chemical process engineer saw yrs ago Was initially started on treatment with metformin .Had GI symptoms. Took Jardiance but too expensive . Current regimen Jardiance 25 mg QD, Tresiba 20 units Mounjaro 2.5 mg Qwkly Chris download shows she is using the sensor 96% of the time. Average glucose is 190 with GMI of 7.9 variability 16.7 %. 38% range with 62% hyperglycemia and no hypoglycemia. Pattern shows post-meal elevation lunch and dinner but also elevation of blood sugar throughout the day Reports low sugars No . Family history of T2DM in- No . Has eyes checked yearly, last eye exam last saw optho 1 mo ago , denies retinopathy. Denies neuropathy, not sees podiatry. Denies nephropathy, on SHANA/ARB.. Has HLD, on statin. Not hx of CAD Had diabetes education. [facility] Medical History COVID-19 Lipoma Encounter to establish care Surgical History History of colonoscopy Hx of hernia repair History of cholecystectomy Status post breast reduction Hx of knee surgery Family History Mother Alcoholic Father Heart transplanted Cardiomyopathy Other Substance use disorder Social History Housing: Apartment Alcohol intake: never Patient Tobacco Use Status: Never used Tobacco e-Cigarette/Vaping Use: Never Used Second Hand Smoke Exposure: Yes (parents) service: No Current occupational status: employed Cognitive needs: No Hearing needs: No Vision needs: No Physical Exam Vital Signs: Last Vital Signs Pulse 81 02/18/24 11:16 BP 120/78 02/18/24 11:16 BMI result Body Mass Index 32.0 Absence of Cushingoid features. Absence of acromegalic features. Neck exam reveals nl size thyroid about 15 gms. No thyroid nodules palpable. No carotid bruits present. Lungs CTA. Heart S1 S2, Reg R/R. No M/R/ G. Skin exam reveals absence of vitiligo or acanthosis nigricans. Abdominal exam reveals Soft NT/ND with NA BS. No organomegaly present. Neck Other: . Extrem Other: Visual exam of foot performed. No ulcerations or open lesions. No onchomycosis, no callouses.Pulses 2 + distally Sensation intact to monofilament exam. Vibratory sensation sensed is intact with 128 Hz tuning fork Results Reviewed Results Reviewed: Laboratory Last Values Glucose (Clinic) 146 mg/dL (60-115) H 02/18/24 11:22 Assessment & Plan Assessment & Plan (1) Diabetes mellitus: Code(s): E11.9 - Type 2 diabetes mellitus without complications Category: Medical Plan: This is a 54-year-old white female with a history of type 2 diabetes being treated with jardiance, Mounjaro and basal insulin with improving but less than optimal glycemic control and no known microvascular or macrovascular complications. Plan is attempt to increase the Mounjaro to 5 mg Q weekly. Will also increase the Tresiba 26 units. If 5 mg Mounjaro is not available will need to initiate prandial insulin. Will have patient follow-up with certify simulation educator Orders: Orders Microalbumin, Random (w Creat) Today E11.9 - Type 2 diabetes mellitus without complications Medications: New tirzepatide (Mounjaro) 5 mg (0.5 mL) subcut QWEEK 2 mL 5RF Changed From insulin degludec (Tresiba FlexTouch U-100 insulin) 20 units (0.2 mL) subcut BEDTIME 15 mL 4RF To insulin degludec (Tresiba FlexTouch U-100 insulin) 26 units (0.26 mL) subcut BEDTIME 30 mL 4RF Discontinued tirzepatide (Mounjaro) Discontinued Reason: Doctor's Order 2.5 mg (0.5 mL) subcut QWEEK 3 months 6.5 mL 3RF Coding Level of Care Code Est Pt Level 4 (09252) Diagnoses Diabetes mellitus E11.9
[2024-02-18 11:16] VITALS: BP 120/78; PULSE 81; BMI 32.0
[2024-02-18 11:28] LABS: Glucose, Whole Blood 146 mg/dL (60-115)
== END 2024-02-18 11:55 | disposition home or self-care (01) ==
PROVIDERS: PCP Nurse Practitioner Family; Visit Provider Internal Medicine Endocrinology, Diabetes & Metabolism
DX: E11.9 Type 2 diabetes mellitus without complications (principal)
CPT/HCPCS: 99214

== ENCOUNTER → 2024-02-18 11:10 | Outpatient (BNVA) | payer OTHER, SELFPAY | PROVIDERS: PCP Nurse Practitioner Family; Visit Provider Internal Medicine Endocrinology, Diabetes & Metabolism | DX: E11.9 Type 2 diabetes mellitus without complications (principal); Z79.4 Long term (current) use of insulin | CPT/HCPCS: 82947 ==

== ENCOUNTER 2024-04-29 15:22 | Outpatient (AMB) | payer OTHER, SELFPAY ==
--- NOTE | 2024-04-29 15:43 | A.OFFPC_ITS ---
Vital Signs 04/29/24 15:54 Height 5 ft 5 in Weight 193 lb 2 oz BMI 32.1 BP 130/70 Blood Pressure Location Lt brachial Position Sitting Pulse 90 Pulse Source Pulse Oximeter Pulse Oximetry (%) 97 Oxygen Delivery Method Room Air Intake Visit Reasons: 3mof\u Intake Note: Patient is here to follow up on DM, HTN, Back pain. Remote Recruiter Required: No Metal Patternmaker: Not Required per policy Accompanied by: Self / Same As Patient Allergies No Known Allergies Allergy (Verified 05/08/24 14:04) Medication List - Last Reconciled 05/08/24 by Artemio Underwood MD atorvastatin 40 mg PO BEDTIME blood-glucose sensor (FreeStyle Chris 3 Sensor device) USE DIRECTED CHANGE EVERY 14 DAYS empagliflozin (Jardiance) 25 mg PO DAILY insulin degludec (Tresiba FlexTouch U-100 insulin) 26 units (0.26 mL) subcut BEDTIME losartan 100 mg PO DAILY metoprolol succinate ER 50 mg PO DAILY omeprazole 40 mg PO DAILY pen needle, diabetic (BD Ultra-Fine Mini Pen Needle) USE DIRECTED TO INJECT ONCE A DAY sertraline 100 mg PO DAILY tirzepatide (Mounjaro) 5 mg (0.5 mL) subcut QWEEK Tobacco use date assessed: 04/29/24 Dental Screening Dental Screen Date: 10/07/23 HPI 3mof\u HPI Details 54-year-old female presents to the offic e to discuss her chronic medical conditions. Patient is compliant with medications and reporting no side effects. Able to check her blood sugars regularly. Not following any particular diet or exercise. Patient has a swelling in the hand that she would like examined. Able to function and do all activities of daily living. [facility] Medical History (Updated 05/08/24 @ 14:06 by Artemio Underwood MD) Diabetes mellitus Hypertension Obesity (BMI 30.0-34.9) COVID-19 Lipoma Encounter to establish care Surgical History History of colonoscopy Hx of hernia repair History of cholecystectomy Status post breast reduction Hx of knee surgery Family History Mother Alcoholic Father Heart transplanted Cardiomyopathy Other Substance use disorder Social History Housing: Apartment Alcohol intake: never Patient Tobacco Use Status: Never used Tobacco e-Cigarette/Vaping Use: Never Used Second Hand Smoke Exposure: Yes (parents) service: No Current occupational status: employed Cognitive needs: No Hearing needs: No Vision needs: No Questionnaire Thrive Questionnaire Date Thrive assessed: 10/07/23 ROC-7 AMB Questionnaire ROC-7 Date ROC - 7 assessed: 10/07/23 Source: Developed by Drs. Dylan Winters, America Taveras, Augusto Guillory and colleagues, with an educational trinidad from [employer]. Physical exam (Primary Care) Vital Signs: Last Vital Signs Pulse 90 04/29/24 15:54 BP 130/70 04/29/24 15:54 Pulse Ox 97 04/29/24 15:54 Oxygen Delivery Method Room Air 04/29/24 15:54 Care Plan Goal for BP management: Blood pressure is in range. Continue medications at same dosage. BMI result Body Mass Index 32.1 BMI Assessment/Plan discussion: High (1 lb per week weight loss suggested.) BMI High, discussed plan: lifestyle, weight reduction and dietary Tobacco/Smoking Status: Tobacco use Status Tobacco use date assessed 04/29/24 04/29/24 16:08 Patient Tobacco Use Status Never used Tobacco 04/29/24 15:43 e-Cigarette/Vaping Use Never Used 04/29/24 15:43 Thrive Assessment: Date of Thrive Assessment Date Thrive assessed 10/07/23 04/29/24 15:43 Const General: cooperative and healthy appearing Nutritional Appearance: well nourished Orientation/consciousness: patient oriented x3 Limitations: no limitations HENMT Head: Yes normal to inspection Eyes General: appearance normal, both eyes and all related structures Neck Neck: Yes normal visual inspection Chest Chest palpation & inspection: normal palpation of entire chest wall Resp Effort & Inspection: normal respiratory effort Neuro General: patient oriented x3 Extrem Other: Hand: Swelling consistent with a ganglion. Results AMB Hemoglobin A1c AMB Hemoglobin A1c 7.3 % Last Edit by DESTINEY Cooper on 04/29/24 16:10 Results Reviewed Results Reviewed: Laboratory Last Values Hgb A1c (Clinic) 7.3 % (4.0-6.0) H 04/29/24 15:51 Assessment and Plan Assessment & Plan (1) Ganglion cyst: Code(s): M67.40 - Ganglion, unspecified site Orders: Orders AMB Hemoglobin A1c 04/29/24 E11.9 - Type 2 diabetes mellitus without complications Coding Level of Care Code Est Pt Level 4 (92098) Complex EM visit Add On G2211 Diagnoses Ganglion cyst M67.40
[2024-04-29 15:54] VITALS: BP 130/70; PULSE 90; O2SAT 97; BMI 32.1
== END 2024-04-29 16:29 | disposition home or self-care (01) ==
PROVIDERS: PCP Internal Medicine; Visit Provider Internal Medicine
DX: E11.9 Type 2 diabetes mellitus without complications (principal)
CPT/HCPCS: 83036; 99214; G2211

== ENCOUNTER 2024-05-12 10:34 | Outpatient (REF) | payer OTHER, SELFPAY ==
[2024-05-12 11:07] LABS: Hematocrit 40.2 % (37.0-47.0); Hemoglobin 13.4 g/dl (12.0-16.0); Mean Corpuscular HGB Conc 33.3 g/dl (31.0-35.0); Mean Corpuscular Hemoglobin 28.3 pg (27.0-33.0); Mean Platelet Volume 9.5 fL (9.4-12.3); Platelet Count 255 X10*3/uL (160-400); Red Blood Count 4.73 X10*6/uL (4.20-5.50); Red Cell Distribution Width 14.3 % (11.0-16.0); White Blood Count 6.4 X10*3/uL (4.8-10.8)
[2024-05-12 12:37] LABS: Alanine Aminotransferase 32 U/L (0-31); Albumin Level 4.3 g/dL (3.5-5.0); Alkaline Phosphatase 100 U/L (39-117); Anion Gap 11 (12-20); Aspartate Amino Transferase 20 U/L (5-31); Bilirubin Direct 0.2 mg/dL (0.0-0.5); Bilirubin Total 0.5 mg/dL (0.0-1.0); Blood Urea Nitrogen 15 mg/dL (9-16); Calcium 9.3 mg/dL (8.4-10.2); Carbon Dioxide 29 mmol/L (22-29); Chloride 106 mmol/L (96-108); Cholesterol 135 mg/dL (<200); Estimated Glomerular Filt Rate > 60; Glucose Random 168 mg/dL (60-115); HDL Cholesterol 38 mg/dL (>40); LDL Cholesterol Calculated 53 mg/dL (<100); Potassium 4.5 mmol/L (3.3-5.1); Sodium 141 mmol/L (135-145); Total Protein 7.1 g/dL (6.5-8.0); Triglycerides 223 mg/dL (<150)
[2024-05-12 12:40] LABS: Thyroid Stimulating Hormone 0.87 uIU/mL (0.32-4.0)
[2024-05-12 14:24] LABS: Creatinine Urine 63.24 mg/dL; Microalbumin Urine < 5.0 mg/L
== END 2024-05-12 10:35 | disposition home or self-care (01) ==
LOC: HO.LAB 10:34
PROVIDERS: PCP Internal Medicine; Visit Provider Internal Medicine
DX: E11.9 Type 2 diabetes mellitus without complications (principal)
CPT/HCPCS: 36415; 80048; 80061; 80076; 82043; 82570; 84443; 85027

== ENCOUNTER 2024-05-26 13:33 | Outpatient (AMB) | payer OTHER, SELFPAY ==
--- NOTE | 2024-05-26 14:04 | A.OFFVIS_ITS ---
Vital Signs 05/26/24 14:55 Height 5 ft 5 in Weight 193 lb BMI 32.1 Intake Visit Reasons: [employer]- B/L Wrist Ganglion Cyst Intake Note: Maria Eugenia a 54 year old right hand dominant female who presents today as a new patient for an evaluation of bilateral hands. Patient reports lump on her right hand located in her palm has been present for at least 3 years. Denies pain however area is tender to the touch. She is unable to fully straighten fingers. She has a small lump located on her left hand at the base of her SF. No previous tx. Denies numbness or tingling. HX of lipomas removed in her spine and under her left arm. Allergies No Known Allergies Allergy (Verified 05/08/24 14:04) HPI HPI [employer]- B/L Wrist Ganglion Cyst: Details: Patient is a 54-year-old female who presents for evaluation of a lump on the right hand, that the patient reports has been there for approximately 2-3 years but has worsened over the last 5-6 months. Over that time, she has noticed that the lump has grown into a more linear structure, and causes a feeling of t ightness when she attempts to extend her fingers. The patient reports that she is able to extend her fingers fully, but hyperextension at the MCP joints of the middle and ring fingers of the right hand is no longer possible. The patient reports that she has a similar nodule on the left hand, but it has not formed this cord like structure and also does not restrict any range of motion in any way. The patient denies any numbness or tingling in the bilateral hands. No other acute complaints or concerns at this time. [facility] Medical History (Updated 05/26/24 @ 18:00 by SEAN Quesada) Diabetes mellitus Hypertension Obesity (BMI 30.0-34.9) COVID-19 Lipoma Encounter to establish care Surgical History History of colonoscopy Hx of hernia repair History of cholecystectomy Status post breast reduction Hx of knee surgery Family History Mother Alcoholic Father Heart transplanted Cardiomyopathy Other Substance use disorder Social History (Updated 05/26/24 @ 14:08 by Elham F Kevin, RMA) Housing: Apartment Alcohol intake: never Patient Tobacco Use Status: Never used Tobacco e-Cigarette/Vaping Use: Never Used Second Hand Smoke Exposure: Yes (parents) service: No Current occupational status: employed 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 Neuro: Patient reports normal sensation of the tips of all digits of bilateral hands at this time Vascular: Cap refill brisk Pain: Patient reports no tenderness to palpation to the cord present on the right hand, or the nodule present on the left. No other tenderness to palpation of the left or right hand noted Patient does report some mild ?stretching? she tries to hyperextend the middle and ring fingers of the left hand at the MCP joint, but no other discomfort with range of motion noted ROM: Patient is able to make a closed fist without difficulty Patient is able to extend fingers fully without difficulty Of note, the patient is not able to extend past 0 degrees in the left middle and ring fingers Negative table top test on the left Skin: No lacerations or abrasions. General: No ecchymosis, erythema, or evidence of infection. Psych: Appears grossly normal Affect normal Attitude cooperative Assessment & Plan Assessment & Plan (1) Dupuytren's disease of both palm and finger without contracture: Code(s): M72.0 - Palmar fascial fibromatosis [Dupuytren] Category: Medical Plan 1. Dupuytren's disease of right palm, middle finger, ring finger without contracture Patient is educated about this condition The patient's educated that due to the fact that she does not have any active contracture at this time, with a negative table top test, there is no indication for surgical intervention Patient is informed that, when she can not put her hand flat on a table, she should call us to schedule a follow-up evaluation and discussion of further treatment options at that time Patient is amenable to this plan Patient will follow-up as needed with any acute concerns Coding Level of Care Code New Pt Level 3 (39026) Diagnoses Dupuytren's disease of both palm and finger without contracture M72.0
[2024-05-26 14:55] VITALS: BMI 32.1
== END 2024-05-26 14:40 | disposition home or self-care (01) ==
PROVIDERS: PCP Nurse Practitioner Family
DX: M72.0 Palmar fascial fibromatosis [Dupuytren] (principal)
CPT/HCPCS: 99203

== ENCOUNTER → 2024-05-26 13:33 | Outpatient (BNVA) | payer OTHER, SELFPAY | PROVIDERS: PCP Nurse Practitioner Family ==

== ENCOUNTER → 2024-11-05 14:11 | Outpatient (BNVA) | payer OTHER, SELFPAY | PROVIDERS: PCP Nurse Practitioner Family; Visit Provider Internal Medicine | DX: E11.9 Type 2 diabetes mellitus without complications (principal); E66.9 Obesity, unspecified; Z68.32 Body mass index [BMI] 32.0-32.9, adult; I10 Essential (primary) hypertension | CPT/HCPCS: 83036; 96127 ==